=== PATIENT | female | born 1975 ===

== ENCOUNTER 2021-03-05 10:11 | Inpatient (IN) ==
[2021-02-27 11:31] LABS: Basophils # 0.1 10*3/uL (0.0-0.2); Basophils % 1.2 % (0.0-0.8); Eosinophils # 0.1 10*3/uL (0.0-0.87); Eosinophils % 1.4 % (0.00-10.9); Hematocrit 37.1 VOL% (35.7-47.0); Immature Granulocytes % 0.2 %; Immature Granulocytes Absolute 0.01 #; Lymphocytes % 46.5 % (21.3-54.2); Mean Corpuscular HGB Conc 32.3 GM/DL (32-36); Mean Corpuscular Volume 97.9 FL (87-102); Mean Platelet Volume 11.8 FL (9.6-12.0); Monocytes % 7.4 % (1.7-12.7); Neutrophils % 43.3 % (38.7-73.9); Platelet Count 213 T/CUMM (130-400); Red Blood Count 3.79 MC/CUMM (3.8-5.5); Red Cell Distribution Width 12.3 % (9.3-17.3); White Blood Count 4.3 T/CUMM (4-12)
[2021-02-27 11:45] LABS: Bilirubin,Total 0.4 MG/DL (0.20-1.00); Calcium 9.4 MG/DL (8.5-10.1); Osmolality,Calculated 280.3 MOS/KG (273-304); Potassium 4.4 MMOL/L (3.5-5.1); Total Protein 7.1 G/DL (6.4-8.2)
[~2021-03-05 10:11] MED LIST: cefTRIAXone 1,000 MG in SODIUM CHLORIDE 0.9% 100 ML IV ONE
[2021-03-05] MEDS ORDERED: EPINEPHrine 1 MG/ML VIAL ONE (10:28)
[2021-03-05] MEDS ORDERED: BUPIVACAINE 0.5% 50 ML VIAL ONE (10:28)
[2021-03-05] MEDS ORDERED: DEXAMETHASONE 4 MG/1 ML VIAL ONE (10:28)
[2021-03-05] MEDS ORDERED: GABAPENTIN 400 MG CAPSULE PO ONE (10:30)
[2021-03-05] MEDS ORDERED: GABAPENTIN 400 MG CAPSULE ONE (10:30)
[2021-03-05] MEDS ORDERED: FAMOTIDINE 20 MG TABLET ONE (10:30)
[2021-03-05] MEDS ORDERED: FAMOTIDINE 20 MG TABLET PO ONE (10:30)
[2021-03-05] MEDS ORDERED: MIDAZOLAM 2 MG/2 ML VIAL ONE (10:31)
[2021-03-05] MEDS ORDERED: fentaNYL 100 MCG/2 ML VIAL ONE ×3 (10:31→13:26)
[2021-03-05] MEDS ORDERED: ACETAMINOPHEN 500 MG TABLET ONE (10:50)
[2021-03-05] MEDS ORDERED: MANNITOL 100 GM/500 ML BAG IV ONE (10:57)
[2021-03-05] MEDS: LACTATED RINGERS 1,000 ML IV SCH (11:21)
[2021-03-05] MEDS ORDERED: ePHEDrine 50 MG/ML VIAL ONE (12:30)
[2021-03-05] MEDS ORDERED: PHENYLEPHRINE 1 MG/10 ML SYRINGE IV ONE (12:54)
[2021-03-05] MEDS ORDERED: SEVOFLURANE 1 UNIT/15 MINUTE INH ONE ×8 (12:54→14:53)
[2021-03-05] MEDS ORDERED: ROCURONIUM 50 MG/5 ML VIAL IV ONE ×2 (12:54→13:33)
[2021-03-05] MEDS ORDERED: GLYCOPYRROLATE 0.4 MG/2 ML VIAL ONE ×2 (12:54→14:59)
[2021-03-05] MEDS ORDERED: propofoL 200 MG/20 ML VIAL IV ONE (12:54)
[2021-03-05] MEDS ORDERED: ONDANSETRON 4 MG/2 ML VIAL ONE ×2 (12:54→15:41)
[2021-03-05] MEDS ORDERED: LACTATED RINGERS 1,000 ML IV ONE (13:57)
[2021-03-05] MEDS ORDERED: NEOSTIGMINE 10 MG/10 ML VIAL ONE (14:59)
[2021-03-05] MEDS ORDERED: ONDANSETRON 4 MG/2 ML VIAL IV PRN ×2 (15:08→15:47)
[2021-03-05] MEDS ORDERED: PROMETHAZINE 25 MG/1 ML VIAL IM PRN (15:08)
[2021-03-05] MEDS ORDERED: HYDROmorphone 2 MG/1 ML VIAL IV PRN (15:08)
[2021-03-05] MEDS ORDERED: SIMETHICONE CHEW 80 MG TABLET PO PRN (15:12)
[2021-03-05] MEDS ORDERED: oxyCODONE/ACETAMINOPHEN 5-325 MG TABLET PO PRN (15:12)
[2021-03-05] MEDS ORDERED: HYDROmorphone 2 MG/1 ML VIAL ONE (15:41)
[2021-03-05] MEDS: HYDROmorphone 2 MG/1 ML VIAL IV PRN ×3 (15:47→16:13)
[2021-03-05 16:43] LABS: Basophils % 0.2 % (0.0-0.8); Hematocrit 35.2 VOL% (35.7-47.0); Hemoglobin 11.7 GM/DL (12.0-16.0); Immature Granulocytes % 0.4 %; Immature Granulocytes Absolute 0.03 #; Lymphocytes # 0.4 10*3/uL (1.4-4.0); Lymphocytes % 4.7 % (21.3-54.2); Mean Corpuscular HGB Conc 33.2 GM/DL (32-36); Mean Corpuscular Volume 95.9 FL (87-102); Mean Platelet Volume 10.5 FL (9.6-12.0); Monocytes % 0.8 % (1.7-12.7); Neutrophils % 93.9 % (38.7-73.9); Platelet Count 187 T/CUMM (130-400); Red Blood Count 3.67 MC/CUMM (3.8-5.5); Red Cell Distribution Width 12.6 % (9.3-17.3); White Blood Count 8.4 T/CUMM (4-12)
[2021-03-05 16:49] LABS: Calcium 8.8 MG/DL (8.5-10.1); Osmolality,Calculated 280.5 MOS/KG (273-304); Potassium 4.1 MMOL/L (3.5-5.1)
[2021-03-05] MEDS: ACETAMINOPHEN 325 MG TABLET PO SCH ×2 (17:11→20:44)
[2021-03-05] MEDS: SODIUM CHLORIDE 0.9% 1,000 ML IV SCH (17:14)
[2021-03-05 18:18] LABS: Lymphocytes 5 % (20-55); Segmented Neutrophils 95 % (50-85); Total Cells Counted 100
[2021-03-05] MEDS: ALVIMOPAN 12 MG CAPSULE PO SCH (20:45)
[2021-03-05] MEDS: ZALEPLON 5 MG CAPSULE PO SCH (20:45)
[2021-03-05] MEDS ORDERED: NALOXONE 0.4 MG/ML VIAL IV PRN (20:49)
[2021-03-05] MEDS: HYDROmorphone PCA 30 MG/30 ML SYRINGE IV SCH (22:16)
[2021-03-06] MEDS: ACETAMINOPHEN 325 MG TABLET PO SCH ×4 (03:31→20:37)
[2021-03-06 05:40] LABS: Basophils % 0.4 % (0.0-0.8); Hematocrit 31.5 VOL% (35.7-47.0); Hemoglobin 10.2 GM/DL (12.0-16.0); Immature Granulocytes % 0.4 %; Immature Granulocytes Absolute 0.04 #; Lymphocytes # 1.2 10*3/uL (1.4-4.0); Lymphocytes % 11.6 % (21.3-54.2); Mean Corpuscular HGB Conc 32.4 GM/DL (32-36); Mean Corpuscular Volume 98.1 FL (87-102); Mean Platelet Volume 10.2 FL (9.6-12.0); Monocytes % 5.9 % (1.7-12.7); Neutrophils % 81.7 % (38.7-73.9); Platelet Count 203 T/CUMM (130-400); Red Blood Count 3.21 MC/CUMM (3.8-5.5); Red Cell Distribution Width 12.7 % (9.3-17.3); White Blood Count 10.1 T/CUMM (4-12)
[2021-03-06 06:02] LABS: Calcium 8.3 MG/DL (8.5-10.1); Osmolality,Calculated 277.4 MOS/KG (273-304); Potassium 4.4 MMOL/L (3.5-5.1)
[2021-03-06] MEDS: DOCUSATE SODIUM 100 MG CAPSULE PO SCH ×2 (08:38→21:24)
[2021-03-06] MEDS: cefTRIAXone 1,000 MG in SODIUM CHLORIDE 0.9% 100 ML IV SCH (08:38)
[2021-03-06] MEDS: GABAPENTIN 400 MG CAPSULE PO SCH (08:39)
[2021-03-06] MEDS: FAMOTIDINE 20 MG TABLET PO SCH (08:39)
[2021-03-06] MEDS: ALVIMOPAN 12 MG CAPSULE PO SCH ×2 (08:39→20:36)
[2021-03-06] MEDS: diphenhydrAMINE 50 MG/1 ML VIAL IV PRN ×2 (08:44→19:58)
[2021-03-06] MEDS: SODIUM CHLORIDE 0.9% 1,000 ML IV SCH (10:13)
[2021-03-06] MEDS: LACTATED RINGERS 1,000 ML IV SCH (10:13)
[2021-03-06] MEDS: ZALEPLON 5 MG CAPSULE PO SCH (20:35)
[2021-03-07] MEDS: diphenhydrAMINE 50 MG/1 ML VIAL IV PRN ×2 (03:11→15:53)
[2021-03-07] MEDS: ACETAMINOPHEN 325 MG TABLET PO SCH ×4 (03:11→20:25)
[2021-03-07 04:06] LABS: Basophils % 0.4 % (0.0-0.8); Eosinophils # 0.1 10*3/uL (0.0-0.87); Eosinophils % 1.2 % (0.00-10.9); Hematocrit 32.2 VOL% (35.7-47.0); Hemoglobin 10.5 GM/DL (12.0-16.0); Immature Granulocytes % 0.4 %; Immature Granulocytes Absolute 0.03 #; Lymphocytes % 12.3 % (21.3-54.2); Mean Corpuscular HGB Conc 32.6 GM/DL (32-36); Mean Corpuscular Volume 97.9 FL (87-102); Mean Platelet Volume 10.5 FL (9.6-12.0); Neutrophils % 80.7 % (38.7-73.9); Platelet Count 169 T/CUMM (130-400); Red Blood Count 3.29 MC/CUMM (3.8-5.5); Red Cell Distribution Width 12.8 % (9.3-17.3); White Blood Count 7.7 T/CUMM (4-12)
[2021-03-07 04:35] LABS: Calcium 8.7 MG/DL (8.5-10.1); Osmolality,Calculated 277.3 MOS/KG (273-304); Potassium 3.3 MMOL/L (3.5-5.1)
[2021-03-07] MEDS: cefTRIAXone 1,000 MG in SODIUM CHLORIDE 0.9% 100 ML IV SCH (09:05)
[2021-03-07] MEDS: POTASSIUM CHLORIDE 20 MEQ TABLET PO SCH (09:05)
[2021-03-07] MEDS: GABAPENTIN 400 MG CAPSULE PO SCH (09:06)
[2021-03-07] MEDS: MAGNESIUM OXIDE 400 MG TABLET PO SCH ×3 (09:06→20:24)
[2021-03-07] MEDS: ALVIMOPAN 12 MG CAPSULE PO SCH ×2 (09:06→20:24)
[2021-03-07] MEDS: FAMOTIDINE 20 MG TABLET PO SCH (09:06)
[2021-03-07] MEDS: DOCUSATE SODIUM 100 MG CAPSULE PO SCH ×2 (09:06→20:24)
[2021-03-07] MEDS: HYDROmorphone PCA 30 MG/30 ML SYRINGE IV SCH (09:18)
[2021-03-07] MEDS: LACTATED RINGERS 1,000 ML IV SCH (13:01)
[2021-03-07] MEDS: oxyCODONE/ACETAMINOPHEN 5-325 MG TABLET PO PRN (17:57)
[2021-03-07] MEDS: ZALEPLON 5 MG CAPSULE PO SCH (20:23)
[2021-03-07] MEDS: oxyCODONE ER 10 MG TABLET PO SCH (20:24)
[2021-03-08] MEDS: oxyCODONE/ACETAMINOPHEN 5-325 MG TABLET PO PRN (01:26)
[2021-03-08] MEDS: diphenhydrAMINE 50 MG/1 ML VIAL IV PRN (01:30)
[2021-03-08 06:26] LABS: Calcium 8.7 MG/DL (8.5-10.1); Osmolality,Calculated 279.1 MOS/KG (273-304); Potassium 3.4 MMOL/L (3.5-5.1)
[2021-03-08] MEDS ORDERED: POTASSIUM CHLORIDE 20 MEQ TABLET PO ONE (06:42)
[2021-03-08] MEDS: cefTRIAXone 1,000 MG in SODIUM CHLORIDE 0.9% 100 ML IV SCH (09:35)
[2021-03-08] MEDS: POTASSIUM CHLORIDE 20 MEQ TABLET PO SCH (09:36)
[2021-03-08] MEDS: ACETAMINOPHEN 325 MG TABLET PO SCH (09:36)
[2021-03-08] MEDS: DOCUSATE SODIUM 100 MG CAPSULE PO SCH (09:36)
[2021-03-08] MEDS: GABAPENTIN 400 MG CAPSULE PO SCH (09:37)
[2021-03-08] MEDS: FAMOTIDINE 20 MG TABLET PO SCH (09:37)
[2021-03-08] MEDS: MAGNESIUM OXIDE 400 MG TABLET PO SCH (09:37)
[2021-03-08] MEDS: oxyCODONE ER 10 MG TABLET PO SCH (09:37)
[2021-03-08] MEDS: ALVIMOPAN 12 MG CAPSULE PO SCH (09:39)
[2021-03-08 11:58] VITALS: BP 113/59
[2021-03-08] MEDS: LACTATED RINGERS 1,000 ML IV SCH (13:05)
== END 2021-03-08 12:55 | disposition home or self-care (01) | DRG 658 ==
LOC: EDBD → N.OR 10:11 → N.SDSINP 10:11 → N.4E 15:08
PROVIDERS: ADMIT Surgery; ATTEND Surgery